=== PATIENT | female | born 1945 | race Caucasian/White ===

== ENCOUNTER 2016-10-08 11:54 | Observation (INO) | payer MEDICARE ==
[~2016-10-08] VITALS: Ht 160 cm; Wt 98.2 kg
[~2016-10-08 11:54] MED LIST: ADULT LOW DOSE81 MG PO; ALDACTONE 25MG25 MG PO; AMOXICILLIN 50500 MG PO; CARVEDILOL3.125 MG PO; FAMOTIDINE 20MG20 MG PO; FUROSEMIDE40 MG PO; GOOD NEIGHBOR M25 MG PO; LAMICTAL200 MG PO; LEVOTHYROXIN0.112 M1 PO; LEXAPRO 20 MG T20 MG PO; LOVASTATIN20 MG PO; RANEXA1000 M2 PO; XANAX 1MG TABLET1 MG PO
[2016-10-08 11:55] VITALS: BP 141/77
[2016-10-08] MEDS ORDERED: AMITRIPTYLINE H10 M1 PO (12:07)
--- OUTSIDE RECORDS SUMMARY | 2016-10-08 12:19 | External Medical Summary Rpt ---
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
--- OUTSIDE RECORDS SUMMARY | 2016-10-08 12:20 | External Medical Summary Rpt ---
Author Author K[facility] [employer], KAYY Cruz Organization [employer] Address Unknown Phone Unavailable
--- OUTSIDE RECORDS SUMMARY | 2016-10-08 12:20 | External Medical Summary Rpt ---
Author Author , Organization [employer] Address Unknown Phone Unavailable Purpose Continuity of Care Document - 09-26-2016 through 2016 Immunization Name Date Route CVX Reacti Commen Provid Is Given on t er Refuse d PPV23 Intram 33 Histor [id number] No 2017 uscula ical 6 r Inform ation - Source Unspec ified
--- OUTSIDE RECORDS SUMMARY | 2016-10-08 12:20 | External Medical Summary Rpt ---
Author Author , Organization [employer] Address Unknown Phone Unavailable Purpose Continuity of Care Document - 09-26-2016 through 2016 Immunization Name Date Route CVX Reacti Commen Provid Is Given on t er Refuse d PPV23 Intram 33 Histor [id number] No 2017 uscula ical 6 r Inform ation - Source Unspec ified
[2016-10-08 12:37] LABS: HEMOGLOBIN 14.6 g/dL (12.2-16.2); LYMPH # 1.3 K/mm3 (0.7-4.5); LYMPH % 28.3 % (10-50.0)
--- NOTE | 2016-10-08 12:51 | Emergency Room Report ---
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 N Clinical Suspician of Infection? N Mental Status: 1 - Regular (Normal Baseline) Sepsis Risk:Low Sepsis Risk Have you (or family members/close friends) recently traveled outside the [place]? N If Yes, where/when: Have you had exposure to infectious disease within the past month? N TB? Other? Specify: Source patient, RN notes reviewed, family, RN/MD Exam Limitations no limitations Comment This is a 69-year-old female patient arriving to the emergency room with palpitations, dizziness, nausea, chest pain and shortness of breath for the past 4 days. No syncope or near syncope. No fever, chills, vomiting or diarrhea. Patient denies any recent travel or exposure to sick contacts. ALLERGIES Coded Allergies: morphine (Severe, ABD PAIN 01/01/16) tramadol (Intermediate, ABDOMINAL PAIN 01/01/16) hydrocodone (ABD PAIN 01/01/16) hydromorphone (From DILAUDID) (ABD PAIN 01/01/16) meperidine (From DEMEROL) (ABD PAIN 01/01/16) Home Medications Active Scripts Famotidine (Famotidine 20MG) 20 MG PO BID #60 TAB Ref 2 Prov: 05/07/15 Reported Medications Escitalopram Oxalate (Lexapro 10MG) 10 MG PO 1300 Spironolactone (Aldactone) 25 MG PO DAILY Escitalopram Oxalate (Lexapro 20MG) 20 MG PO QAM AMITRIPTYLINE HCL (Amitriptyline Hydrochloride) 10 MG PO QHS #90 TAB Aspirin (Adult Low Dose Aspirin EC) 81 MG PO DAILY Lovastatin 20 MG PO QHS Ranolazine (Ranexa) 1,000 MG PO BID Lamotrigine (Lamictal) 200 MG PO DAILY Furosemide (Furosemide 40MG) 40 MG PO DAILY Levothyroxine Sodium (Levothyroxine 0.112MG) 0.112 MG PO DAILY Alprazolam (Xanax 1MG) 1 MG PO TID Discontinued Reported Medications Carvedilol (Carvedilol 3.125MG) 3.125 MG PO BID History Medical History General CAD? Yes Angina: No Hypertension? Yes Hyperlipidemia? Yes CHF? No DVT? No PE? No COPD? No Asthma? No Anemia? No GERD? Yes Gastric ulcers? No GI Bleed? No Hernia? No Thyroid Problems? Yes Hypothyroidism? Yes CVA? No Seizures? No Diabetes? No Renal Insuffiency? No End Stage Renal Disease? No UTI? No Stones? No BPH? No GB Disease: No Nephritic Syndrome? No Asplenia? No Hepatitis? No Sickle Cell Disease? No Arthritis? Yes Migraines? No Cataracts? No Glaucoma? No MRSA? No HIV? No TB? No Anxiety? No Depression? Yes Cancer? No More? No Immunization Hx DT/Tetanus Unknown Flu 2014-16FSN Pneumonia Refuses Surgical Hx Previous Surgery?Y CABG X 4 BREAST REDUCTION Tubal Ligation APPENDECTOMY NAZARIO KNEE SURGERY STOMACH SURGERY GALLBLADDER Family History Family Hx Diabetes Yes CAD Yes Hypertension Yes Hyperlipidemia Yes Cancer Yes TB No Social History Smoking Hx Smoker: Former Smoker Tobacco: No Alcohol Alcohol: No Review of Systems All Other Systems Reviewed and Negative Respiratory shortness of breath Cardiovascular see HPI, chest pain, palpitations Physical Exam Vital Signs Vital Signs Date Time Temp Pulse Resp B/P Pulse O2 O2 Flow FiO2 Ox Delivery Rate / 1454 98.3 56 18 109/54 95 ROOM AIR 06/05 1431 98.1 60 18 128/68 96 06/05 1428 60 06/05 1428 98.1 60 18 128/68 06/05 1428 96 ROOM AIR 06/05 1423 98.1 60 18 128/68 96 06/05 1327 98.4 75 18 144/77 96 06/05 1248 68 16 141/77 99 06/05 1243 2 06/05 1155 98.4 65 16 141/77 95 General Appearance normal appearance, WD/WN, mild distress Neck normal inspection, non-tender, supple, full range of motion Respiratory Status Yes: trachea midline, chest symmetrical, non tender chest. No: respiratory distress. Lung Sounds bilateral: normal breath sounds, lungs clear. 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 No Comment 13:20 - case discussed with Dr. Holley, advised of patient's presentation, findings, ED course. Patient still feels sick, unable to stand up and walk, due to persistent symptoms. Decision made to hospital last patient at this time. Care transferred to Dr. Holley at this time. I will write temporary, bridge, admission orders, per hospital protocol. Upon patient's presentation to the floor, they unit nurse will contact Dr. Holley in order to obtain full inpatient admission orders. Results/Orders Laboratory Tests 10/08/16 1220: Sodium 144, Potassium 3.3 L, Chloride 105, Carbon Dioxide 31, BUN 7, Creatinine 0.7, Estimated Creat Clear 118, Estimated GFR (MDRD) 83, Glucose 104, Calcium 8.6, Total Bilirubin 0.4, AST 16, ALT 26, Alkaline Phosphatase 138 H, Creatine Kinase 57, CK and CKMB Interp 0.5, Troponin I < 0.02, Total Protein 7.6, Albumin 4.0, Globulin 3.6 H, Albumin/Globulin Ratio 1.1, WBC 4.6 L, RBC 4.52, Hgb 14.6 , Hct 44.9, MCV 99.5 H, RDW 14.1, Plt Count 230, MPV 5.5 L, Gran % 63.0, Gran # 2.9, Lymphocytes % 28.3, Monocytes % 5.9, Eosinophils % 2.3, Basophils % 0.6, Lymphocytes # 1.3, Monocytes # 0.3, Eosinophils # 0.1, Basophils # 0.0, PUBS MCHC 32.5, MCH 32.3 H Orders Procedure Date/time Status [id number] FAT/LO CHO/ROSALINO 10/08 D Complete CARDIAC ENZYMES 10/09 1999 Complete CARDIAC ENZYMES 10/08 1400 Complete 12 LEAD EKG-DUNCAN (INITIAL) 10/08 1210 Active ELECTROCARDIOGRAM REQUEST 10/08 1208 Active IV SALINE LOCK 10/08 1208 Active OXYGEN PER NURSE 10/08 1208 Active FACTORY MAINTENANCE MANAGER 10/08 1208 Active TROPONIN I 10/08 1208 Complete CPK 10/08 1208 Complete COMPLETE METABOLIC PANEL 10/08 1208 Complete CKMB 10/08 1208 Complete CBC WITH AUTO DIFF 10/08 1208 Complete ADMIT PATIENT 10/08 UNK Active PULSE OXIMETRY REQUEST 10/08 UNK Active OXYGEN REQUEST 10/08 UNK Active VITAL SIGNS 10/08 UNK Active BERRY PICKER 10/08 UNK Active POM NURSE EMMA HOSE ORDER 10/08 UNK Active CODE STATUS 10/08 UNK Active PATIENT ACTIVITY ORDER 10/08 UNK Active SPECIALTY CLINIC PHYS CONSULT 10/08 UNK Active CM/EKG CM/infant caregiver Rhythm Normal Sinus Rhythm Rate 85 Ectopy No Comments No acute ischemic changes EKG rate, NSR, rhythm, no evid. of ischemic chgs, no ectopy, normal QRS, normal GA, no EKG for comparison, non-spec. ST/Twave chgs, ST elevation, ST depression, LBBB, RBBB, ectopy, abnormal Q waves XRAY/CT/US XRAY/CT/US XRAY chest XR interpretation by discussed w/radiologist Xray Results no infiltrates, normal heart size, normal lung inflation nazario Departure Departure Time of Disposition 1324 Disposition Still a Patient Clinical Impression Primary Impression: Palpitations Secondary Impressions: Chest pain Qualifiers: Chest pain type: unspecified Qualified Code: R07.9 - Chest pain, unspecified Dyspnea Qualifiers: Dyspnea type: shortness of breath Qualified Code: R06.02 - Shortness of breath Condition STABLE Referrals Kishan NARVAEZ,Serg (Family) Prescriptions Current Visit Scripts Carvedilol (Carvedilol 6.25MG) 6.25 MG PO BID #60 TAB ED Critical Care Critical Care No at 0040
--- NOTE | 2016-10-08 12:51 | Emergency Room Report ---
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 N Clinical Suspician of Infection? N Mental Status: 1 - Regular (Normal Baseline) Sepsis Risk:Low Sepsis Risk Have you (or family members/close friends) recently traveled outside the [place]? N If Yes, where/when: Have you had exposure to infectious disease within the past month? N TB? Other? Specify: Source patient, RN notes reviewed, family, RN/MD Exam Limitations no limitations Comment This is a 69-year-old female patient arriving to the emergency room with palpitations, dizziness, nausea, chest pain and shortness of breath for the past 4 days. No syncope or near syncope. No fever, chills, vomiting or diarrhea. Patient denies any recent travel or exposure to sick contacts. ALLERGIES Coded Allergies: morphine (Severe, ABD PAIN 01/01/16) tramadol (Intermediate, ABDOMINAL PAIN 01/01/16) hydrocodone (ABD PAIN 01/01/16) hydromorphone (From DILAUDID) (ABD PAIN 01/01/16) meperidine (From DEMEROL) (ABD PAIN 01/01/16) Home Medications Active Scripts Famotidine (Famotidine 20MG) 20 MG PO BID #60 TAB Ref 2 Prov: 05/07/15 Reported Medications Escitalopram Oxalate (Lexapro 10MG) 10 MG PO 1300 Spironolactone (Aldactone) 25 MG PO DAILY Escitalopram Oxalate (Lexapro 20MG) 20 MG PO QAM AMITRIPTYLINE HCL (Amitriptyline Hydrochloride) 10 MG PO QHS #90 TAB Aspirin (Adult Low Dose Aspirin EC) 81 MG PO DAILY Lovastatin 20 MG PO QHS Ranolazine (Ranexa) 1,000 MG PO BID Lamotrigine (Lamictal) 200 MG PO DAILY Furosemide (Furosemide 40MG) 40 MG PO DAILY Levothyroxine Sodium (Levothyroxine 0.112MG) 0.112 MG PO DAILY Alprazolam (Xanax 1MG) 1 MG PO TID Discontinued Reported Medications Carvedilol (Carvedilol 3.125MG) 3.125 MG PO BID History Medical History General CAD? Yes Angina: No Hypertension? Yes Hyperlipidemia? Yes CHF? No DVT? No PE? No COPD? No Asthma? No Anemia? No GERD? Yes Gastric ulcers? No GI Bleed? No Hernia? No Thyroid Problems? Yes Hypothyroidism? Yes CVA? No Seizures? No Diabetes? No Renal Insuffiency? No End Stage Renal Disease? No UTI? No Stones? No BPH? No GB Disease: No Nephritic Syndrome? No Asplenia? No Hepatitis? No Sickle Cell Disease? No Arthritis? Yes Migraines? No Cataracts? No Glaucoma? No MRSA? No HIV? No TB? No Anxiety? No Depression? Yes Cancer? No More? No Immunization Hx DT/Tetanus Unknown Flu 2014-16FSN Pneumonia Refuses Surgical Hx Previous Surgery?Y CABG X 4 BREAST REDUCTION Tubal Ligation APPENDECTOMY NAZARIO KNEE SURGERY STOMACH SURGERY GALLBLADDER Family History Family Hx Diabetes Yes CAD Yes Hypertension Yes Hyperlipidemia Yes Cancer Yes TB No Social History Smoking Hx Smoker: Former Smoker Tobacco: No Alcohol Alcohol: No Review of Systems All Other Systems Reviewed and Negative Respiratory shortness of breath Cardiovascular see HPI, chest pain, palpitations Physical Exam Vital Signs Vital Signs Date Time Temp Pulse Resp B/P Pulse O2 O2 Flow FiO2 Ox Delivery Rate / 1454 98.3 56 18 109/54 95 ROOM AIR 06/05 1431 98.1 60 18 128/68 96 06/05 1428 60 06/05 1428 98.1 60 18 128/68 06/05 1428 96 ROOM AIR 06/05 1423 98.1 60 18 128/68 96 06/05 1327 98.4 75 18 144/77 96 06/05 1248 68 16 141/77 99 06/05 1243 2 06/05 1155 98.4 65 16 141/77 95 General Appearance normal appearance, WD/WN, mild distress Neck normal inspection, non-tender, supple, full range of motion Respiratory Status Yes: trachea midline, chest symmetrical, non tender chest. No: respiratory distress. Lung Sounds bilateral: normal breath sounds, lungs clear. 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 No Comment 13:20 - case discussed with Dr. Holley, advised of patient's presentation, findings, ED course. Patient still feels sick, unable to stand up and walk, due to persistent symptoms. Decision made to hospital last patient at this time. Care transferred to Dr. Holley at this time. I will write temporary, bridge, admission orders, per hospital protocol. Upon patient's presentation to the floor, they unit nurse will contact Dr. Holley in order to obtain full inpatient admission orders. Results/Orders Laboratory Tests 10/08/16 1220: Sodium 144, Potassium 3.3 L, Chloride 105, Carbon Dioxide 31, BUN 7, Creatinine 0.7, Estimated Creat Clear 118, Estimated GFR (MDRD) 83, Glucose 104, Calcium 8.6, Total Bilirubin 0.4, AST 16, ALT 26, Alkaline Phosphatase 138 H, Creatine Kinase 57, CK and CKMB Interp 0.5, Troponin I < 0.02, Total Protein 7.6, Albumin 4.0, Globulin 3.6 H, Albumin/Globulin Ratio 1.1, WBC 4.6 L, RBC 4.52, Hgb 14.6 , Hct 44.9, MCV 99.5 H, RDW 14.1, Plt Count 230, MPV 5.5 L, Gran % 63.0, Gran # 2.9, Lymphocytes % 28.3, Monocytes % 5.9, Eosinophils % 2.3, Basophils % 0.6, Lymphocytes # 1.3, Monocytes # 0.3, Eosinophils # 0.1, Basophils # 0.0, PUBS MCHC 32.5, MCH 32.3 H Orders Procedure Date/time Status [id number] FAT/LO CHO/ROSALINO 10/08 D Complete CARDIAC ENZYMES 10/09 1999 Complete CARDIAC ENZYMES 10/08 1400 Complete 12 LEAD EKG-DUNCAN (INITIAL) 10/08 1210 Active ELECTROCARDIOGRAM REQUEST 10/08 1208 Active IV SALINE LOCK 10/08 1208 Active OXYGEN PER NURSE 10/08 1208 Active SENIOR BENEFITS MANAGER 10/08 1208 Active TROPONIN I 10/08 1208 Complete CPK 10/08 1208 Complete COMPLETE METABOLIC PANEL 10/08 1208 Complete CKMB 10/08 1208 Complete CBC WITH AUTO DIFF 10/08 1208 Complete ADMIT PATIENT 10/08 UNK Active PULSE OXIMETRY REQUEST 10/08 UNK Active OXYGEN REQUEST 10/08 UNK Active VITAL SIGNS 10/08 UNK Active UNDERWRITING SPECIALIST 10/08 UNK Active POM NURSE EMMA HOSE ORDER 10/08 UNK Active CODE STATUS 10/08 UNK Active PATIENT ACTIVITY ORDER 10/08 UNK Active SPECIALTY CLINIC PHYS CONSULT 10/08 UNK Active CM/EKG CM/body maker Rhythm Normal Sinus Rhythm Rate 85 Ectopy No Comments No acute ischemic changes EKG rate, NSR, rhythm, no evid. of ischemic chgs, no ectopy, normal QRS, normal IA, no EKG for comparison, non-spec. ST/Twave chgs, ST elevation, ST depression, LBBB, RBBB, ectopy, abnormal Q waves XRAY/CT/US XRAY/CT/US XRAY chest XR interpretation by discussed w/radiologist Xray Results no infiltrates, normal heart size, normal lung inflation nazario Departure Departure Time of Disposition 1324 Disposition Still a Patient Clinical Impression Primary Impression: Palpitations Secondary Impressions: Chest pain Qualifiers: Chest pain type: unspecified Qualified Code: R07.9 - Chest pain, unspecified Dyspnea Qualifiers: Dyspnea type: shortness of breath Qualified Code: R06.02 - Shortness of breath Condition STABLE Referrals Kishan NARVAEZ,Serg (Family) Prescriptions Current Visit Scripts Carvedilol (Carvedilol 6.25MG) 6.25 MG PO BID #60 TAB ED Critical Care Critical Care No at 0040
[2016-10-08 13:18] LABS: BUN 7 mg/dL (7-18)
[2016-10-08 13:19] LABS: GFR (ESTIMATED) 83 ML/MIN (59-)
--- OUTSIDE RECORDS SUMMARY | 2016-10-08 13:30 | External Medical Summary Rpt ---
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
--- OUTSIDE RECORDS SUMMARY | 2016-10-08 13:31 | External Medical Summary Rpt ---
Author Author [employer], [employer] Organization [employer] Address Unknown Phone Unavailable Results CBC W Auto Differential panel in Blood Observa Value Referen Units Interpr Notes Date tion ce etation Range Basophils 0 - 0.2 K/MM3 Normal No Oct 08 inform2016 [#/volume on in 12:20 PM ] in source Blood by data Automated count Basophils 0.1 - 2.0 % Normal No Oct 08 /100 2016 leukocyte on in 12:20 PM s in source Blood by data Automated count Eosinophi 0.0 - 0.4 K/mm3 Normal No Oct 08 ls 2016 [#/volume on in 12:20 PM ] in source Blood by data Automated count Eosinophi 0.1 - % Normal No Oct 08 ls/100 12.0 2016 leukocyte on in 12:20 PM s in source Blood by data Automated count Granulocy 1.8 - 7.8 K/mm3 Normal No Oct 08 tracey 2016 [#/volume on in 12:20 PM ] in source Blood by data Automated count Granulocy 37.0 - % Normal No Oct 08 tracey/100 80.0 2016 leukocyte on in 12:20 PM s in source Blood by data Automated count Hematocri 37.0 - % Normal No Oct 08 t [Volume 47.0 2016 on in 12:20 PM Fraction] source of Blood data Hemoglobi 12.2 - g/dL Normal No Oct 08 n 16.2 2016 [Mass/vol on in 12:20 PM ume] in source Blood data Lymphocyt 0.7 - 4.5 K/mm3 Normal No Oct 08 es 2016 [#/volume on in 12:20 PM ] in source Unspecifi data ed specimen by Automated count Lymphocyt 10 - 50.0 % Normal No Oct 08 es 2016 [#/volume on in 12:20 PM ] in source Unspecifi data ed specimen by Automated count Erythrocy 27 - 31.2 pg High No Oct 08 te mean 2016 corpuscul on in 12:20 PM ar source hemoglobi data n [Entitic mass] Erythrocy 31.8 - g/dl Normal No Oct 08 te mean 35.4 inform2016 corpuscul on in 12:20 PM ar source hemoglobi data n concentra tion [Mass/vol ume] by Automated count Erythrocy 82.2 - fl High No Oct 08 te mean 97.8 inform2016 corpuscul on in 12:20 PM ar volume source [Entitic data volume] by Automated count Monocytes 0.1 - 1.0 K/mm3 Normal No Oct 08 inform2016 [#/volume on in 12:20 PM ] in source Blood by data Automated count Monocytes 1.7 - 9.3 % Normal No Oct 08 /100 inform2016 leukocyte on in 12:20 PM s in source Blood by data Automated count Platelet 7.4 - fl Low No Oct 08 mean 10.4 inform2016 volume on in 12:20 PM [Entitic source volume] data in Blood by Automated count Platelets 142 - 424 K/mm3 Normal No Oct 08 inform2016 [#/volume on in 12:20 PM ] in source Blood data Erythrocy 4.2 - 5.4 M/mm3 Normal No Oct 08 tracey inform2016 [#/volume on in 12:20 PM ] in source Amniotic data fluid Erythrocy 11.5 - % Normal No Oct 08 te 17.5 inform2016 distribut on in 12:20 PM ion width source [Entitic data volume] by Automated count Leukocyte 4.8 - K/MM3 Low No Oct 08 s 10.8 inform2016 [#/volume on in 12:20 PM ] in source Blood data
--- OUTSIDE RECORDS SUMMARY | 2016-10-08 13:31 | External Medical Summary Rpt ---
Author Author , Organization [employer] Address Unknown Phone Unavailable Purpose Continuity of Care Document - 09-26-2016 through 2016 Immunization Name Date Route CVX Reacti Commen Provid Is Given on t er Refuse d PPV23 Intram 33 Histor [id number] No 2017 uscula ical 6 r Inform ation - Source Unspec ified
--- OUTSIDE RECORDS SUMMARY | 2016-10-08 13:31 | External Medical Summary Rpt ---
Author Author , Organization [employer] Address Unknown Phone Unavailable Purpose Continuity of Care Document - 09-26-2016 through 2016 Immunization Name Date Route CVX Reacti Commen Provid Is Given on t er Refuse d PPV23 Intram 33 Histor [id number] No 2017 uscula ical 6 r Inform ation - Source Unspec ified
[2016-10-08 14:28] VITALS: BP 128/68
[2016-10-08 14:54] VITALS: BP 109/54
--- NOTE | 2016-10-08 15:34 | CONSULT NOTE ---
See Addendum Standard Demographics Patient Demo Date of Consultation: 10/08/16 Referring Provider: Serg Holley MD Reason for Consultation: chest pain, palpitations PRIMARY DIAGNOSIS: PALPITATIONS Problem list Problem list: 1. CAD A. 4 vessel CABG, 1996 B. cardiac cath, 12/2014, adequately revascularized with no need for intervention 2. Tobacco use 3. HTN 4. Hyperlipidemia 5. Hypothyroidism 6. Seizure disorder History of present illness: History of present illness: 71 yo WF with cardiac history as noted above was admitted through the ER for 4 days of intermittent chest pressure and "skipped beats" that seem to correlate with normal daily activities. No syncope or near syncope. No fever, chills, vomiting or diarrhea. Normal troponin with EKG showing sinus rhythm, first degree AV block and NSSTTW abnormalities unchanged from previous tracings. Cardiology consulted for further evaluation. Past Medical History: General: Hypertension Yes CVA No Seizures No TB No COPD No Asthma No Diabetes No Angina No [place] No Hyperlipidemia Yes Cancer No Ulcers No MRSA No GB Disease No Past Surgical HX: Previous Surgery?Y CABG X 4 BREAST REDUCTION Tubal Ligation APPENDECTOMY NAZARIO KNEE SURGERY STOMACH SURGERY GALLBLADDER Allergies Coded Allergies: morphine (Severe, ABD PAIN 01/01/16) tramadol (Intermediate, ABDOMINAL PAIN 01/01/16) hydrocodone (ABD PAIN 01/01/16) hydromorphone (From DILAUDID) (ABD PAIN 01/01/16) meperidine (From DEMEROL) (ABD PAIN 01/01/16) Home medications: Active Scripts Famotidine (Famotidine 20MG) 20 MG PO BID #60 TAB Ref 2 Prov: 05/07/15 Reported Medications Spironolactone (Aldactone) 25 MG PO DAILY Aspirin (Adult Low Dose Aspirin EC) 81 MG PO DAILY Lovastatin 20 MG PO QHS Ranolazine (Ranexa) 1,000 MG PO BID Escitalopram Oxalate (Lexapro 20MG) 20 MG PO BID Lamotrigine (Lamictal) 200 MG PO DAILY Furosemide (Furosemide 40MG) 40 MG PO DAILY Carvedilol (Carvedilol 3.125MG) 3.125 MG PO BID Levothyroxine Sodium (Levothyroxine 0.112MG) 0.112 MG PO DAILY Alprazolam (Xanax 1MG) 1 MG PO TID AMITRIPTYLINE HCL (Amitriptyline Hydrochloride) 30 MG PO QHS #90 Current Medications: Current Medications Sodium Chloride 10 ML PRN PRN IV Immunization HX DT/Tetanus Unknown Flu 2014-16FSN Pneumonia Refuses TB Test in last year No Family history Family HX Family Hx Insignificant No Diabetes Yes CAD Yes Hypertension Yes Hyperlipidemia Yes Cancer Yes TB No Social Hx: Smoking HX Tobacco No Are you/the child exposed to second-hand smoke: Yes Alcohol Alcohol: No Hx of Drug Use Drug Use? No Review of systems: Constitutional No: no symptoms reported. Respiratory SOB with excertion. Cardiovascular chest pain, palpitations Gastrointestinal/Abdominal No no symptoms reported Genitourinary No: no symptoms reported. Musculoskeletal joint pain. Neurological No: no symptoms reported. Exam: Admission Vital Signs: 1ST Vital Signs Result Date Time Pulse Ox 95 / 1155 B/P 141/77 10/08 1155 Temp 98.4 / 1155 Pulse 65 06/ 1155 Resp 16 06/ 1155 O2 Delivery ROOM AIR 06/ 1428 Last Vital Signs: Vital Signs Result Date Time Pulse Ox 95 / 1454 B/P 109/54 06/ 1454 O2 Delivery ROOM AIR / 1454 Temp 98.3 /05 1454 Pulse 56 06/05 1454 Resp 18 06/05 1454 Exam General appearance: alert, awake, no acute distress Neck: no carotid bruit, no JVD Cardiovascular: regular rate & rhythm Respiratory: clear to auscultation ABD: soft, no tenderness, obese Extremities: moves all, no peripheral edema Neuro: alert, intact, oriented Laboratory data: Laboratory Tests 10/08/16 1220: Sodium 144, Potassium 3.3 L, Chloride 105, Carbon Dioxide 31, BUN 7, Creatinine 0.7, Estimated Creat Clear 118, Estimated GFR (MDRD) 83, Glucose 104, Calcium 8.6, Total Bilirubin 0.4, AST 16, ALT 26, Alkaline Phosphatase 138 H, Creatine Kinase 57, CK and CKMB Interp 0.5, Troponin I < 0.02, Total Protein 7.6, Albumin 4.0, Globulin 3.6 H, Albumin/Globulin Ratio 1.1, WBC 4.6 L, RBC 4.52, Hgb 14.6 , Hct 44.9, MCV 99.5 H, RDW 14.1, Plt Count 230, MPV 5.5 L, Gran % 63.0, Gran # 2.9, Lymphocytes % 28.3, Monocytes % 5.9, Eosinophils % 2.3, Basophils % 0.6, Lymphocytes # 1.3, Monocytes # 0.3, Eosinophils # 0.1, Basophils # 0.0, PUBS MCHC 32.5, MCH 32.3 H Plan: Assessment: 1. Recurrent chest pressure with "skipped beats" with activity. 2. CAD with CABG and most recent cath 12/2014 showing adequate revascularization. 3. HTN 4. Hyperlipidemia 5. Hypokalemia 6. Remote tobacco use, stopped 1996. Recommendations: 1. Get 2D echo and doppler 2. Lexiscan myoview 3. increase coreg to 6.25 mg BID 4. Monitor telemetry for arrhythmias. at 1924
--- NOTE | 2016-10-08 15:59 | RADIOLOGY REPORT PS360 ---
CHEST-PORTABLE HISTORY: palpitations ORDERING PHYSICIAN: Serg Holley MD PATIENT AGE: 71 years COMPARISON: 05/06/2015 FINDINGS: There has been prior median sternotomy. Normal heart size.. The lungs are clear without infiltrates, suspicious nodules, or pleural effusions. No acute bony abnormalities. IMPRESSION: Prior median sternotomy, no change with no acute finding
[2016-10-08 16:15] VITALS: BP 110/47
--- NOTE | 2016-10-08 16:59 | HISTORY AND PHYSICAL REPORT ---
Demographics: Admit date: 10/08/16 Chief complaint: Palpitations and weakness PRIMARY DIAGNOSIS: PALPITATIONS Allergies: Coded Allergies: morphine (Severe, ABD PAIN 01/01/16) tramadol (Intermediate, ABDOMINAL PAIN 01/01/16) hydrocodone (ABD PAIN 01/01/16) hydromorphone (From DILAUDID) (ABD PAIN 01/01/16) meperidine (From DEMEROL) (ABD PAIN 01/01/16) History of present illness: History of present illness: 71 yo WF with cardiac history as noted above was admitted through the ER for 4 days of intermittent chest pressure and "skipped beats" that seem to correlate with normal daily activities. No syncope or near syncope. No fever, chills, vomiting or diarrhea. Normal troponin with EKG showing sinus rhythm, first degree AV block and NSSTTW abnormalities unchanged from previous tracings. Above note per cardiology consultation. When I examined patient she had no complaints except for a mild headache, no further palpitations or chest pain. I reviewed data as noted above, ER data and EKGs. Past medical history: Family HX Diabetes Yes CAD Yes Hypertension Yes Hyperlipidemia Yes Cancer Yes TB No Immunization HX DT/Tetanus Unknown Flu 2014-FSN Pneumonia Refuses TB Test in last year No General CAD? Yes Angina: No [place]: No Hypertension? Yes Hyperlipidemia? Yes CHF? No DVT? No PE? No COPD? No Asthma? No Anemia? No GERD? Yes Gastric ulcers? No GI Bleed? No Hernia? No Thyroid Problems? Yes Hypothyroidism? Yes CVA? No Seizures? No Diabetes? No Renal Insuffiency? No UTI? No Stones? No BPH? No GB Disease: No Nephritic Syndrome? No Asplenia? No Hepatitis? No Sickle Cell Disease? No Arthritis? Yes Migraines? No Cataracts? No Glaucoma? No MRSA? No HIV? No TB? No Anxiety? No Depression? Yes Cancer? No More? No Past Surgical HX Previous Surgery?Y CABG X 4 BREAST REDUCTION Tubal Ligation APPENDECTOMY NAZARIO KNEE SURGERY STOMACH SURGERY GALLBLADDER Current home meds: Active Scripts Famotidine (Famotidine 20MG) 20 MG PO BID #60 TAB Ref 2 Prov: 05/07/15 Reported Medications Spironolactone (Aldactone) 25 MG PO DAILY Aspirin (Adult Low Dose Aspirin EC) 81 MG PO DAILY Lovastatin 20 MG PO QHS Ranolazine (Ranexa) 1,000 MG PO BID Escitalopram Oxalate (Lexapro 20MG) 20 MG PO BID Lamotrigine (Lamictal) 200 MG PO DAILY Furosemide (Furosemide 40MG) 40 MG PO DAILY Carvedilol (Carvedilol 3.125MG) 3.125 MG PO BID Levothyroxine Sodium (Levothyroxine 0.112MG) 0.112 MG PO DAILY Alprazolam (Xanax 1MG) 1 MG PO TID AMITRIPTYLINE HCL (Amitriptyline Hydrochloride) 30 MG PO QHS #90 Social Hx: Smoking HX Tobacco No Are you/the child exposed to second-hand smoke: Yes Alcohol Alcohol: No Hx of Drug Use Drug Use? No Patien't marital status is single Patient's support system is excellent Review of systems: Constitutional No: no symptoms reported. Respiratory No: no symptoms reported. Cardiovascular see HPI Gastrointestinal/Abdominal No no symptoms reported Genitourinary No: no symptoms reported. Musculoskeletal No: no symptoms reported. Neurological Yes: headache. Exam: Lab data for last 24 hours: Laboratory Tests 10/08/16 1220: Sodium 144, Potassium 3.3 L, Chloride 105, Carbon Dioxide 31, BUN 7, Creatinine 0.7, Estimated Creat Clear 118, Estimated GFR (MDRD) 83, Glucose 104, Calcium 8.6, Total Bilirubin 0.4, AST 16, ALT 26, Alkaline Phosphatase 138 H, Creatine Kinase 57, CK and CKMB Interp 0.5, Troponin I < 0.02, Total Protein 7.6, Albumin 4.0, Globulin 3.6 H, Albumin/Globulin Ratio 1.1, WBC 4.6 L, RBC 4.52, Hgb 14.6 , Hct 44.9, MCV 99.5 H, RDW 14.1, Plt Count 230, MPV 5.5 L, Gran % 63.0, Gran # 2.9, Lymphocytes % 28.3, Monocytes % 5.9, Eosinophils % 2.3, Basophils % 0.6, Lymphocytes # 1.3, Monocytes # 0.3, Eosinophils # 0.1, Basophils # 0.0, PUBS MCHC 32.5, MCH 32.3 H Admission vital signs: 1ST Vital Signs Result Date Time Pulse Ox 95 10/08 1155 B/P 141/77 10/08 1155 Temp 98.4 10/08 1155 Pulse 65 10/08 1155 Resp 16 10/08 1155 O2 Delivery ROOM AIR 10/08 1428 Exam General appearance: normal appearance, alert, awake Eyes: normal exam, anicteric Neck: normal inspection, non-tender, no carotid bruit, no JVD Cardiovascular: normal exam Respiratory: normal exam, clear to auscultation ABD: normal exam, non-distended, normal bowel sounds Musculoskeletal: normal exam Neuro: normal exam, alert, no deficit Plan: Problem List 1. Palpitations 2. Chest pain Plan: Admit to hospital, rule out [place], agree with stress testing and telemetry monitoring. at 1659
[2016-10-08 19:22] VITALS: BP 125/72
[2016-10-08 20:05] VITALS: BP 125/72
[2016-10-09] VITALS (7 sets, daily range): BP systolic 112–124; BP diastolic 40–69
--- NOTE | 2016-10-09 07:36 | PHARMACY CLINIC NOTE ---
Patient Demographics Patient Demographics Admission date: 10/08/16 Date: 10/09/16 Time: 0736 Allergies Coded Allergies: morphine (Severe, ABD PAIN 01/01/16) tramadol (Intermediate, ABDOMINAL PAIN 01/01/16) hydrocodone (ABD PAIN 01/01/16) hydromorphone (From DILAUDID) (ABD PAIN 01/01/16) meperidine (From DEMEROL) (ABD PAIN 01/01/16) HEIGHT- FT: 5 IN: 3.00 K.204 VTE General Information Labs: Laboratory Tests 10/08 1220 Hematology Hgb (12.2 - 16.2 g/dL) 14.6 Hct (37.0 - 47.0 %) 44.9 Plt Count (142 - 424 K/mm3) 230 Disclaimer The following section includes nursing documentation that has been pulled in for pharmacy review. Patient's VTE score: 1 Patient's VTE Risk: VERY LOW RISK Clinical trial participant? No VTE prophylaxis [id number] VTE prophylaxis ordered? Yes Type of prophylaxis/treatment: EMMA at 0736
--- NOTE | 2016-10-09 07:48 | RADIOLOGY REPORT PS360 ---
PROCEDURE: 2-D M-mode and color Doppler study INDICATIONS FOR THE TEST: Chest pain+ COPD Heart Murmur Tobacco Smoking Palpitations Fatigue Syncope Edema Hypertension Diabetes Mellitus Rheumatic Fever SOB LE Obesity+Hyperlipidemia Family History HD Additional History CABG PATIENT INFORMATION HEIGHT: 63 WEIGHT:216 GENDER: Female B/P: 2-D/M-MODE INTERPRETATION: 2-D MEASUREMENTS OBSERVED VALUES IN CMS Right Ventricular Dimension (RVDd) 2.9 Interventricular Septum (Thickness)(IVsd) 1.3 Left Ventricular Internal Dimensions(LVIDd) 5.0 Left Ventricular Posterior Wall (Thickness)(LVPWd) 1.2 Aortic Root 2.8 Aortic Cusp Separation 1.6 Left Atrial Dimensions (LAD) 4.7 2D 1. Left atrium is mildly enlarged, left ventricle is normal size, there is mild concentric left ventricular hypertrophy, visually estimated ejection fraction of 55% with no obvious regional wall motion abnormality, endocardial surfaces are somewhat poorly visualized. 2. The right atrium is mildly enlarged, right ventricle is mildly dilated with normal contractility. 3. The aortic valve is thickened and calcified leaflet continue to display good mobility. 4. The mitral valve leaflets are minimally thickened. 5. The tricuspid valve is structurally normal. 6. The pulmonic valve is not well visualized. 7. No significant pericardial effusion noted. DOPPLER INTERROGATION: Doppler interrogation of the aortic mitral and tricuspid valvular presence of mild mitral and tricuspid regurgitation, tricuspid regurgitant jet velocity insufficient for calculation of the right ventricular systolic pressure, diastolic parameters are within normal range. CONCLUSION: 1. Mild biatrial enlargement, normal left ventricular size, mild concentric left ventricular hypertrophy, visually estimated ejection fraction of 55% with no obvious regional wall motion abnormality, endocardial surfaces are somewhat poorly visualized. Diastolic parameters are within normal range. 2. Mildly enlarged right ventricle with normal contractility. 3. Mild mitral and tricuspid regurgitation, tricuspid regurgitant jet velocity is insufficient for calculation of the right ventricular systolic pressure. 4. No significant pericardial effusion noted.
[2016-10-09] MEDS ORDERED: LEXAPRO 10 MG T10 MG PO (09:37)
--- NOTE | 2016-10-09 09:57 | ACUTE CARE PROGRESS NOTE (QUA) ---
Progress Notes Subjective Date 10/09/16 Time 0750 Note Patient is sitting on the side of the bed, she has just returned from her stress test. She reports some mild chest discomfort with palpitations in the middle of the night. States she feels anxious and requests her Xanax. Alert and oriented x3. Rate and rhythm regular. No edema. Pulses 2+. Lung sounds clear and equal bilaterally. Patient/family reports: anxious Nursing reports: no complaints Objective Findings Last VS-Temp:97.7 B/P:119/64 Pulse:59 Resp:18 SaO2:96 ROOM AIR Last weight lbs:216 oz:8 K.204 Method:Bed Scales Reviewed: medications, vital signs, lab results, radiology report Assessment/Plan Problem List 1. Palpitations Assessment/Plan: Telemetry is uneventful; 1st degree AVB with occasional PVC's noted. Coreg was increased yesterday with some improvement of symptoms. 2. Chest pain Assessment/Plan: Await results of GXT. Will consider d/c later today pending results Patient condition Improving Plan: See above This inpt stay is expected to cross 2 MNs from start of care No at 0956
--- NOTE | 2016-10-09 15:55 | RADIOLOGY REPORT PS360 ---
CARDIOLITE SPECT MYOCARDIAL PERFUSION SCAN, REST AND STRESS: EXERCISE STRESS [facility] REVIEW QGS EF AND WALL MOTION EVALUATION: QPS - PERFUSION EVALUATION HISTORY: Chest pressure, Palpitations, CAD, CABG DOSE: 10.20 mCi technetium 99m mibi intravenously at rest followed by 32.1 mCi technetium 99m mibi following the intravenous ministration of 0.4 mg of Lexiscan. Resting blood pressure is 111/57. Stress blood pressure 112/55. FINDINGS: Ejection fraction is calculated to be 59%. Stress images reveal moderately decreased activity in the anterior wall while rest images reveal improved activity. Gated images calculated ejection fraction of 59% with normal wall motion IMPRESSION: Anterior defect consistent with previous nontransmural myocardial infarction with partial reversible ischemia. Normal ejection fraction normal wall motion. This is at least a moderate risk stress test possibly high risk because the anterior wall involvement. Clinical correlation is advised.
--- NOTE | 2016-10-09 15:55 | RADIOLOGY REPORT PS360 ---
CARDIOLITE SPECT MYOCARDIAL PERFUSION SCAN, REST AND STRESS: EXERCISE STRESS [facility] REVIEW QGS EF AND WALL MOTION EVALUATION: QPS - PERFUSION EVALUATION HISTORY: Chest pressure, Palpitations, CAD, CABG DOSE: 10.20 mCi technetium 99m mibi intravenously at rest followed by 32.1 mCi technetium 99m mibi following the intravenous ministration of 0.4 mg of Lexiscan. Resting blood pressure is 111/57. Stress blood pressure 112/55. FINDINGS: Ejection fraction is calculated to be 59%. Stress images reveal moderately decreased activity in the anterior wall while rest images reveal improved activity. Gated images calculated ejection fraction of 59% with normal wall motion IMPRESSION: Anterior defect consistent with previous nontransmural myocardial infarction with partial reversible ischemia. Normal ejection fraction normal wall motion. This is at least a moderate risk stress test possibly high risk because the anterior wall involvement. Clinical correlation is advised.
[2016-10-09] MEDS ORDERED: CARVEDILOL6.25 MG PO (16:13)
--- NOTE | 2016-10-09 16:24 | DISCHARGE SUMMARY STANDARD ---
Demographics Admit date: 10/08/16 Discharge date: 10/09/16 History of present illness History of present illness 71 yo WF with cardiac history as noted above was admitted through the ER for 4 days of intermittent chest pressure and "skipped beats" that seem to correlate with normal daily activities. No syncope or near syncope. No fever, chills, vomiting or diarrhea. Normal troponin with EKG showing sinus rhythm, first degree AV block and NSSTTW abnormalities unchanged from previous tracings. Above note per cardiology consultation. When I examined patient she had no complaints except for a mild headache, no further palpitations or chest pain. I reviewed data as noted above, ER data and EKGs. Hospital Course Hospital Course: Patient was admitted to acute care. Telemetry monitoring showed a 1st degree AVB and occasional PVC's. Serial enzymes were negative. Coreg was increased which decreased her palpitations through the night. An echo was obtained which showed biatrial enlargement, mild LVH, mild TR and MR with EF 55%. Nuclear GXT was abnormal; however unchanged from 2015. At that time, she was cathed and no significant, stentable disease was present. Discharge home on increased Coreg. See medication reconciliation for complete list. FU with Fina Moya APRN in one week, Dr. Vicente in 2 weeks. Discharge diagnoses Problem List 1. Palpitations 2. Chest pain Medications Medications: Discharge meds are as noted. Follow up Follow up in office in: 7 DAYS with: Graciela Moya APRN at [phone]
== END 2016-10-09 16:45 | disposition home or self-care (01) ==
LOC: ER 11:54 → 2ND 13:28 → ER 13:28 → 2ND 13:29
PROVIDERS: Emergency Medicine; Internal Medicine
DX: R07.9 Chest pain, unspecified (principal); I10 Essential (primary) hypertension; I25.10 Atherosclerotic heart disease of native coronary artery without angina pectoris; R00.2 Palpitations; Z95.1 Presence of aortocoronary bypass graft
CPT/HCPCS: A9502; G0378; J2785

== ENCOUNTER 2016-12-03 12:06 | Day surgery (SDC) | payer MEDICARE ==
[~2016-12-03] VITALS: Ht 160 cm; Wt 98.0 kg
[~2016-12-03 12:06] MED LIST changes: +AMITRIPTYLINE H10 M1 PO; +CARVEDILOL6.25 MG PO; +LEXAPRO 10 MG T10 MG PO
--- NOTE | 2016-12-03 13:10 | Operative Note ---
Colonoscopy (Carmen) Procedure date: 12/03/16 Date of : 49 Procedure:Colonoscopy Flexible sigmoidoscopy Indications: Mrs. Isidro is a 71-year-old female who has had a change in bowel habits. She has noted obstipation with some straining, small bowel movements and incomplete evacuation. She also has noted dark black pepper speckled bowel movements. She also has noted some RIGHT lower quadrant abdominal discomfort which she has had for a while. She reports no bright red rectal bleeding, weight loss or family history of colon cancer. She did have a colonoscopy in September [address] Damian Hunt and had a non-adenomatous benign colon polyp removed and her colonoscopy was done with fairly poor bowel preparation. Performing Provider: Gee Morales MD Referrring Provider: Serg Holley M.D. Sedation: MAC sedation Procedure: Prior to the procedure, a history and physical exam was performed, and patient medications and allergies were reviewed. The risks and benefits of the procedure and the sedation options and risks were discussed with the patient. All questions were answered and informed consent was obtained. Patient identification and proposed procedure were verified by the physician and the nurse. The patient was placed in a left lateral decubitus position. Throughout the procedure, the patient's blood pressure, pulse, and oxygen saturations were monitored continuously. Findings: On digital rectal examination there was normal rectal tone. There were no external hemorrhoids. The scope was then inserted through the anal canal into the rectum and advanced to 35-40 cm. There was abundant amount of brown and dark liquid stool with some solid content. This was indicative of very poor bowel preparation and the procedure was aborted because of the poor visualization. Impressions: 1. Poor bowel preparationprocedure aborted Recommendations: I would recommend improved bowel preparation and repeat colonoscopy. Complications: None EBL (ml): 0 at 1308
--- NOTE | 2016-12-03 14:06 | Anesthesia Record ---
Anesthesia Record Part I Total IV fluids: 300 EBL (ml): 0 Urine Output: 0 B/P: 94/46 % SaO2: 96 Pulse: 58 Resps: 16 Temp: 97.9 Patient is: Drowsy, Stable Stable to PACU at: 1312 (sds) at 1406
--- NOTE | 2016-12-03 14:07 | Anesthesia Record ---
Anesthesia Record Part II Discharge time: 1312 Destination: Same day surgery PACU nurse assessment review? Yes Patient is: Stable Anesthesia complications? No at 1405
[2016-12-03 14:42] VITALS: BP 107/82
== END 2016-12-03 14:10 | disposition home or self-care (01) ==
LOC: SDC 12:06
PROVIDERS: Internal Medicine Gastroenterology
PROC: 0DJD8ZZ Inspection of Lower Intestinal Tract, Via Natural or Artificial Opening Endoscopic (ICD-10-PCS; principal; 2016-12-03 13:00)
DX: R19.4 Change in bowel habit (principal); Z86.010 Personal history of colon polyps; Z53.09 Procedure and treatment not carried out because of other contraindication

== ENCOUNTER 2017-01-28 12:35 | Day surgery (SDC) | payer MEDICARE ==
[~2017-01-28] VITALS: Ht 160 cm; Wt 100.7 kg
--- NOTE | 2017-01-28 14:41 | Operative Note ---
Colonoscopy (C[facility]en) Procedure date: 01/28/17 Date of : 49 Procedure:Colonoscopy Colonoscopy Indications: Mrs. Isidro is a 71-year-old female who is here for diagnostic colonoscopy. She has had failed attempts at bowel preparation at least 3 or 4 times previously. The patient still was not completely clear and has had enemas today. She has had a change in bowel habits with incomplete evacuation/incomplete defecation. She also noted some dark pepper colored stools. She had a benign non-adenomatous polyp removed in September 2014 (Dr. Damian Hunt M.D.). She reports no rectal bleeding, weight loss or family history of colon cancer. Performing Provider: Gee Morales MD Referrring Provider: Serg Holley M.D. Sedation: MAC sedation Procedure: Prior to the procedure, a history and physical exam was performed, and patient medications and allergies were reviewed. The risks and benefits of the procedure and the sedation options and risks were discussed with the patient. All questions were answered and informed consent was obtained. Patient identification and proposed procedure were verified by the physician and the nurse. The patient was placed in a left lateral decubitus position. Throughout the procedure, the patient's blood pressure, pulse, and oxygen saturations were monitored continuously. Findings: On digital rectal examination there was normal rectal tone. There were no external hemorrhoids. The colonoscope was introduced through the anal canal to the rectum and advanced to the cecum. The ileocecal valve was identified. There was marked amount of liquid brown stool in the cecum. The [place] preparation score was no better than 5. Upon withdrawal of the colonoscope, the cecum, ascending, transverse, descending, sigmoid and rectum were grossly normal. There were no mucosal abnormalities identified. There was enough liquid stool that only 50 percent of the colonic mucosa was visualized well. Upon retroflexion within the rectum there were grade 1-2 internal hemorrhoids. Impressions: 1. Normal colonoscopy with fair to poor bowel preparation ([place] preparation score 5) 2. Grade 1-2 internal hemorrhoids Recommendations: I am not going to repeat colonoscopy presently. I would continue to treat with a fiber bowel regimen on a long-term daily maintenance basis. Complications: None EBL (ml): 0 at 1440
[2017-01-28 15:37] VITALS: BP 97/57
== END 2017-01-28 15:30 | disposition home or self-care (01) ==
LOC: SDC 12:35
PROVIDERS: Internal Medicine Gastroenterology
PROC: 0DJD8ZZ Inspection of Lower Intestinal Tract, Via Natural or Artificial Opening Endoscopic (ICD-10-PCS; principal; 2017-01-28 13:00)
DX: R19.4 Change in bowel habit (principal); K64.0 First degree hemorrhoids; K64.1 Second degree hemorrhoids; Z86.010 Personal history of colon polyps; Z79.82 Long term (current) use of aspirin; Z79.899 Other long term (current) drug therapy